=== PATIENT | female | born 1970 ===

== ENCOUNTER 2018-09-09 07:42 | Outpatient (CLI) | payer OTHER ==
[~2018-09-09 07:42] MED LIST: PROTONIX40 M1 PO; PROTONIX40 MG
== END 2018-09-09 10:17 | disposition home or self-care (01) ==
LOC: NUCLEAR 07:42
DX: M06.4 Inflammatory polyarthropathy (principal)
CPT/HCPCS: 78315; A9503

== ENCOUNTER 2022-10-25 05:33 | Day surgery (SDC) | payer OTHER ==
[~2022-10-25 05:33] MED LIST changes: +ZOFRA
== END 2022-10-25 14:20 | disposition home or self-care (01) ==
LOC: CIR.AMB 05:33
PROVIDERS: ATTEND Urology
DX: N39.3 Stress incontinence (female) (male) (principal); N39.0 Urinary tract infection, site not specified; Z20.822 Contact with and (suspected) exposure to COVID-19; Z91.011 Allergy to milk products; Z88.8 Allergy status to other drugs, medicaments and biological substances
CPT/HCPCS: 57288; C1771